=== PATIENT | male | born 1930 | race Caucasian/White ===

== ENCOUNTER 2017-06-06 08:38 | Day surgery (SDC) | payer MEDICARE, BC ==
--- NOTE | 2017-06-06 08:06 | HP ---
DATE OF SURGERY: 06/06/2017 HISTORY OF PRESENT ILLNESS: The patient is an 87 year-old who had some bright red blood start about a week or so ago with some clots and also with aches at times. No rectal pain. Bowels are regular. Unclear etiology. He is in need of follow up colonoscopy. He did have some recent antibiotic for root canal recently. Concern about whether he had infection. PAST MEDICAL HISTORY: Hypertension, heart disease, hypercholesterolemia. PAST SURGICAL HISTORY: Back surgery, knee surgery and endoscopy. He had hernia repair in the past. MEDICATIONS: Aspirin, gabapentin, hydrocodone, metoprolol, omeprazole, hyoscyamine sulfate. ALLERGIES: LATEX, TAPE, LIBRAX, PRAVACHOL, REGLAN, ZOCOR. FAMILY HISTORY: Diabetes. SOCIAL HISTORY: No smoking. Occasional alcohol use. REVIEW OF SYSTEMS: Twelve systems reviewed per admission assessment. No chest pain or palpitations other systems negative or noncontributory as above and per preadmission questionnaire. PHYSICAL EXAMINATION: GENERAL: No acute distress. HEENT: Sclerae nonicteric. NECK: No JVD. CHEST: Equal excursion, nonlabored breathing. CVS: Regular rate and rhythm. ABDOMEN: Soft. No peritoneal signs. EXTREMITIES: No significant edema. NEURO: Alert, moving extremities symmetrically. No gross motor deficits noted. RECTAL: Deferred timed to endoscopy exam. IMPRESSION: Rectal bleeding unclear etiology anything from colitis, diverticulosis versus hemorrhoid issues. Either way I feel the patient would benefit from colonoscopy. Risks and benefits explained in detail not limited to bleeding or infection, risk of bowel injury or perforation possibly requiring open procedure, risk of missed or nondiagnosis or incomplete exam or inability to determine etiology of his bleeding. He understands if no other etiology other than hemorrhoids may consider banding, general risk of anesthesia or sedation, risk of bowel injury or perforation possibly requiring open procedure, consider if only hemorrhoid issue could consider banding, general risk of bleeding, infection, risky of deep infection possibly progression of hemorrhoid disease, possibly requiring other procedures but not limited to. He understands and agrees to the planned procedure and will proceed with colonoscopy and also internal hemorrhoid banding as an outpatient.
[2017-06-06] MEDS ORDERED: DIPRIVAN 200 MG/20 ML IV ONE (08:39)
[2017-06-06] MEDS ORDERED: Lactated Ringers 1,000 ML IV ONE (08:52)
[2017-06-06] MEDS ORDERED: Lactated Ringers 1,000 ML IV SCH (09:00)
[2017-06-06 12:19] VITALS: BP 134/82; PULSE 81; O2SAT 100
--- NOTE | 2017-06-07 08:07 | OP ---
SURGERY DATE/TIME: 06/06/2017 1031 PREOPERATIVE DIAGNOSIS: Rectal bleeding. POSTOPERATIVE DIAGNOSES: 1) Grade II dysplasia. 2) Internal and external hemorrhoids question source of bleeding. No active current bleeding. 2) Diverticulosis. 3) Fair bowel prep. PROCEDURES: 1) Colonoscopy to cecum with random cold biopsy of colon to evaluate for microscopic colitis. 2) Hot biopsy small raised lesion versus hyperplastic lesion rectosigmoid. 3) Internal hemorrhoid banding x3 columns. SURGEON: Dr. Dyllan Irby. ANESTHESIA: MAC. ESTIMATED BLOOD LOSS: Minimal. INDICATIONS: As noted above. Risks and benefits explained in detail but not limited to and consent obtained. DESCRIPTION OF PROCEDURE AND FINDINGS: The patient is taken to the operating room. MAC anesthesia introduced. After official time out and no disagreement with planned procedure, digital rectal exam did not reveal any rectal masses. He did have some internal and external hemorrhoids. Video colonoscope inserted and passed up through the sigmoid, descending and transverse colon. With external pressure the scope was able to be passed around the ascending colon to the cecum. Appendiceal orifice and valve were well visualized. Prep overall was fair. There were a few areas of liquidy stool suction irrigated as well as possible limiting the exam slightly. Overall fair bowel prep. On withdrawal of the scope there had been no signs of any fresh or old blood in the colon. He had been on some antibiotics. It was elected to go ahead and do some random cold biopsies in the colon to evaluate for microscopic colitis. Good hemostasis noted. Scope slowly and carefully pulled back. He had some mild diverticulosis in the left colon. There were no signs of any large polyps, masses or obstructing lesions. There were some very small raised lesion versus early polyp or hyperplastic lesion in the rectosigmoid colon at about 20 cm removed with biopsy forceps. Otherwise on retroflex he had some grade II/III internal and external hemorrhoids seen to be on the irritated side. There was question whether this was the reason for rectal bleeding. There were no signs of any obvious masses. No signs of any definitive AVM or other etiology of obvious rectal bleeding at this time. No signs of any fresh or old blood. The scope was withdrawn. The patient tolerated this part of the procedure well. Again biopsy site removal of a small raised lesion in rectosigmoid with good hemostasis. Under MAC anesthesia half-stewart retractor carefully inserted. It was felt definitely worthwhile to try a little hemorrhoid banding. Therefore starting at left lateral grasping the top edge of the internal hemorrhoid, suction napkin machine operator easily applied with good tuft of tissue. This was again repeated in the right posterior and again on the right anterior hemorrhoidal column. A good tuft of tissue in each column grasped. The patient tolerated the procedure well. There were no immediate complications. Findings discussed with the family in the waiting area. Continue high fiber diet and Metamucil to titrate soft bulky bowel movements.
== END 2017-06-06 12:32 | disposition home or self-care (01) ==
LOC: SDC 08:38
PROVIDERS: ATTEND Surgery
PROC: 0DBG8ZX Excision of Left Large Intestine, Via Natural or Artificial Opening Endoscopic, Diagnostic (ICD-10-PCS; principal; 2017-06-06)
PROC: 0DBF8ZX Excision of Right Large Intestine, Via Natural or Artificial Opening Endoscopic, Diagnostic (ICD-10-PCS; 2017-06-06)
PROC: 06LY4CC Occlusion of Hemorrhoidal Plexus with Extraluminal Device, Percutaneous Endoscopic Approach (ICD-10-PCS; 2017-06-06)
PROC: 0DBP8ZX Excision of Rectum, Via Natural or Artificial Opening Endoscopic, Diagnostic (ICD-10-PCS; 2017-06-06)
DX: K62.5 Hemorrhage of anus and rectum (principal); Q43.9 Congenital malformation of intestine, unspecified; K64.4 Residual hemorrhoidal skin tags; K64.8 Other hemorrhoids; K57.90 Diverticulosis of intestine, part unspecified, without perforation or abscess without bleeding; I10 Essential (primary) hypertension; I51.9 Heart disease, unspecified; E78.00 Pure hypercholesterolemia, unspecified
CPT/HCPCS: 45398; 88305; 99100; J2704

== ENCOUNTER 2017-06-19 11:33 | Observation (INO) | payer MEDICARE, BC ==
[2017-06-19] MEDS ORDERED: Sodium Chloride 0.9% 1000 ML 1,000 ML IV SCH ×2 (12:15→14:15)
[2017-06-19 12:31] LABS: INR 1.08 (0.8-3.0)
[2017-06-19 12:32] LABS: BASOPHIL % 0.5 % (0.0-0.4); Basophil (Absolute #) 0.03 (0-0.4); Eosinophil % 2.4 % (0.00-5.0); Eosinophil (Absolute #) 0.15 (0-0.5); Granulocyte Absolute (ANC) 3.96 (1.4-6.9); Granulocytes % 62.6 % (36.0-66.0); Hematocrit 35.3 % (42-50); Hemoglobin 11.3 gm/dl (12.5-18.0); Lymphocyte (Absolute #) 1.53 (1.0-4.6); Lymphocytes % 24.2 % (24.0-44.0); Mean Cell Volume 90.1 fl (78-100); Mean Corpuscular Hemoglobin 28.8 pg (26-32); Mean Platelet Volume 10.6 fl (6-9.5); Monocyte (Absolute #) 0.65 (0.0-1.3); Monocytes % 10.3 % (0.0-12.0); Platelet Count 186 K/mm3 (150-450); Red Blood Count 3.92 M/mm3 (4.1-5.6); Red Cell Distribution Width 14.4 % (11.5-14.0); White Blood Count 6.3 K/mm3 (4.0-10.5)
[2017-06-19 12:37] LABS: ALBUMIN 4.1 g/dL (3.5-5.0); ALKALINE PHOSPHATASE 73 U/L (38-126); ANION GAP 15.7 MEQ/L (5-15); BLOOD UREA NITROGEN 22 mg/dL (9-20); CHLORIDE 104 mmol/L (98-107); Carbon Dioxide 26 mmol/L (22-30); Creatinine 1 1.18 mg/dL (0.66-1.25); Glucose 108 mg/dL (74-106); Potassium 4.2 mmol/L (3.5-5.1); SGOT/AST 32 U/L (17-59); SGPT/ALT 18 U/L (0-50); SODIUM 141 mmol/L (137-145)
[2017-06-19 13:15] LABS: Appearance CLEAR (CLEAR); Bilirubin NEGATIVE (NEGATIVE); Blood NEGATIVE Ery/ul (0-5); Glucose NEGATIVE (NEGATIVE); Ketones NEGATIVE (NEGATIVE); Leukocyte Esterase NEGATIVE (NEGATIVE); Nitrite NEGATIVE (NEGATIVE); Protein,Urine Dip TRACE (Negative); Urobilinogen NORMAL mg/dL (0-1)
[2017-06-19 13:24] LABS: Bacteria FEW /HPF (NEGATIVE); Mucus MODERATE /HPF (NEGATIVE); WBC 0-2 /HPF (0-5)
--- NOTE | 2017-06-19 14:10 | ERPHSYRPT ---
- History of Present Illness Time Seen by Provider: 06/19/17 11:50 Source: patient, family Patient Subjective Stated Complaint: Pt states "I was sitting in denominational and I just got a little lightheaded, no pain, no dizziness, just felt odd in my head. " Triage Nursing Assessment: Pt alert and oriented X 3, skin pwd. Pt ambulates with an upright steady gait, able to speak in full clear sentences. Physician History: PATIENT WITH A HISTORY OF HYPERTENSION COMPLAINS OF ACUTE ONSET OF BLURRED VISION, SPOUSE STATES PATIENT APPEARED PALE, UNSPONSIVE TO VERBAL STIMULI FOR 15 MINUTES. PATIENT DENIES HEADACHE, SLURRED SPEECH, FOCAL NUMBNESS, TINGLING OR WEAKNESS IN EXTREMITIES OR UNSTEADY GAIT. Timing/Duration: today Severity: moderate Character of Deficits: other (TRANSIENT BLURRED VISION) Deficits: no difficulties Baseline/Normal Cognition: alert oriented x 3 Current Cognition: alert oriented x 3 Baseline Gait: walks w/o assistance Associated Symptoms: vision changes, other (GENERALIZED WEAKNESS) Allergies/Adverse Reactions: latex Allergy (Severe, Verified 06/06/17 08:57) clindamycin Allergy (Verified 06/06/17 08:57) Wheezing metoclopramide HCl [From Reglan] Adverse Reaction (Verified 06/06/17 08:57) RENAL Home Medications: Amlodipine Besylate 5 mg [Norvasc 5 mg] 5 mg PO DAILY 05/17/13 [History] Docusate Sodium 100 mg [Colace 100 MG] 100 mg PO UD 05/17/13 [History] Gabapentin 400 mg PO BID 05/17/13 [History] Hydrocodone/APAP 7.5/750 [Vicodin Es] 1 udtab PO BID 05/17/13 [History] Lisinopril 5 mg [Zestril 5 MG] 2.5 mg PO BID 05/17/13 [History] Metoprolol Succinate 25 mg Xl* [Toprol-Xl 25MG Tablets] 12.5 mg PO BID [History] Omeprazole 20 MG [Prilosec 20 mg] 20 mg PO DAILY 05/17/13 [History] Orphenadrine Citrate 100 mg [Norflex 100 MG Tablet] 100 mg PO [id number] PRN 05/17/13 [History] Clobetasol Propionate/Emoll [Clobetasol Emollient 0.05% Crm] 15 gm TP BID [History] Cyclobenzaprine HCl 10 mg [Cyclobenzaprine 10 MG] 10 mg PO Q12H PRN PRN [History] Hyoscyamine Sulfate 0.375 mg [Levbid 0.375 mg Sr] 0.375 mg PO TIDPRN [History] Tamsulosin HCl 0.4 mg [Flomax 0.4 MG] 0.4 mg PO DAILY 03/03/16 [History] Evolocumab [Repatha Syringe] 140 mg IM UD 06/03/17 [History] Hx Tetanus, Diphtheria Vaccination/Date Given: Yes Hx Influenza Vaccination/Date Given: Yes Hx Pneumococcal Vaccination/Date Given: Yes Immunizations Up to Date: Yes - Review of Systems Constitutional: No Fever, No Chills Eyes: No Symptoms, Vision Changes Ears, Nose, & Throat: No Symptoms Respiratory: No Symptoms, No Cough, No Dyspnea Cardiac: No Symptoms, No Chest Pain, No Edema, No Syncope Abdominal/Gastrointestinal: No Symptoms, No Abdominal Pain, No Nausea, No Vomiting, No Diarrhea Genitourinary Symptoms: No Dysuria Musculoskeletal: No Back Pain, No Neck Pain Skin: No Rash Neurological: Other (NEAR SYNCOPE), No Dizziness, No Focal Weakness, No Sensory Changes Psychological: No Symptoms Endocrine: No Symptoms All Other Systems: Reviewed and Negative - Past Medical History Pertinent Past Medical History: Yes Neurological History: No Pertinent History ENT History: Cataracts Cardiac History: Coronary Artery Disease, High Cholesterol, Hypertension Respiratory History: No Pertinent History Endocrine Medical History: No Pertinent History Musculoskeletal History: Osteoarthritis GI Medical History: Hernia, Ulcer History: No Pertinent History Psycho-Social History: No Pertinent History Male Reproductive Disorders: Prostate Problems Other Medical History: BACK CHRONIC PAIN - Past Surgical History Past Surgical History: Yes Neuro Surgical History: No Pertinent History Cardiac: No Pertinent History Respiratory: No Pertinent History Gastrointestinal: Hernia Repair Genitourinary: No Pertinent History Musculoskeletal: Orthopedic Surgery Male Surgical History: Prostate Surgery, Other Other Surgical History: TURP, bone spurs removed from cervical and lumbar areas, rt knee x2,surgery to repair fx nose - Social History Smoking Status: Never smoker Exposure to second hand smoke: No Drug Use: none Patient Lives Alone: No Significant Family History: heart disease, hypertension - Nursing Vital Signs Nursing Vital Signs: Initial Vital Signs Temperature 97.8 F 06/19/17 11:40 Pulse Rate 62 06/19/17 11:40 Respiratory Rate 16 06/19/17 11:40 Blood Pressure 140/59 06/19/17 11:40 O2 Sat by Pulse Oximetry 100 06/19/17 11:40 Pain Scale Pain Intensity 0 - [place] Coma Scale Best Eye Response ([place]): (4) open spontaneously Best Verbal Response ([place]): (5) oriented Best Motor Response ([place]): (6) obeys commands Moris Total: 15 - Physical Exam General Appearance: no apparent distress, alert Eye Exam: bilateral eye: PERRL, EOMI Ears, Nose, Throat Exam: normal ENT inspection, moist mucous membranes Neck Exam: normal inspection, non-tender, supple Respiratory: normal breath sounds, lungs clear, airway intact, No respiratory distress Cardiovascular: regular rate/rhythm, No edema Gastrointestinal: soft, No tenderness, No distention Back Exam: normal inspection Extremity Exam: normal inspection, No pedal edema Peripheral Pulses: carotid (R): 2+, carotid (L): 2+, femoral (R): 2+, femoral (L ): 2+, dorsalis-pedis (R): 2+, dorsalis-pedis (L): 2+ Mental Status: alert, oriented x 3 public health social worker Exam: normal hearing, normal speech, tongue midline Coordination/Gait: normal finger to nose, normal gait Motor/Sensory: no motor deficit, no sensory deficit, no pronator drift DTR: bicep (R): 2+, bicep (L): 2+, tricep (R): 2+, tricep (L): 2+, knee (R): 2+ , knee (L): 2+, ankle (R): 2+ Skin Exam: normal color, warm, dry, No rash SpO2 Interpretation: normal SpO2: 99 Oxygen Delivery: Room Air - Course EKG Interpreted by Me: RATE, Sinus Rhythm, NORMAL AXIS, Non-specific ST Changes (INFERIOR LATERAL ST DEPRESSION NO CHANGE COMPARED TO EKG 02/13/2016) - Radiology Exams Chest X-ray Interpretation: Interpreted by me (ELEVATION RIGHT HEMIDIAPHRAM, BILATERAL HILAR CALCIFIED NODES) Ordered Tests: Active Orders 24 hr Category Date Time Status Up Ad Karla ROUTINE Activity 06/19/17 14:17 Ordered Call Admit Doctor for Orders ON ADMISSION Care 06/19/17 14:16 Ordered Information Systems Security Analyst STAT Care 06/19/17 12:09 Active Clean Catch Urine Specimen STAT Care 06/19/17 12:08 Active Code Status Order ROUTINE Care 06/19/17 14:15 Ordered EKG-ER Only STAT Care 06/19/17 12:08 Active IV Care Q6H Care 06/19/17 14:15 Ordered IV Insertion STAT Care 06/19/17 12:08 Active Neuro Checks Q4H Care 06/19/17 14:15 Ordered Oxygen-ED Only NASAL CANNULA 2 lpm Care 06/19/17 12:[address] in Observation ROUTINE Care 06/19/17 14:15 Ordered Telemetry ROUTINE Care 06/19/17 14:15 Ordered Vital Signs Q4H Care 06/19/17 14:15 Ordered Regular Diet Diet 06/19/17 Dinner Ordered CHEST 1 VIEW (PORTABLE) Stat Exams 06/19/17 12:08 Taken HEAD WITHOUT CONTRAST [CT] Stat Exams 06/19/17 12:08 Taken CBC W DIFF Stat Lab 06/19/17 12:08 Completed CMP Stat Lab 06/19/17 12:08 Completed PT INR [PROTIME WITH INR] Stat Lab 06/19/17 12:10 Completed TROPONIN Q3H Lab 06/19/17 12:15 Completed TROPONIN Q3H Lab 06/19/17 15:15 Ordered TROPONIN Q3H Lab 06/19/17 18:15 Ordered TROPONIN Q3H Lab 06/19/17 21:15 Ordered TROPONIN Q3H Lab 06/20/17 00:15 Ordered UA W/ MICROSCOPIC Stat Lab 06/19/17 13:10 Completed Oxygen NASAL CANNULA 2 lpm RT 06/19/17 14:15 Ordered Transfer Order Routine Transfer 06/19/17 Ordered Medication Summary Generic Name Dose Route Start Last Admin Trade Name Freq PRN Reason Stop Dose Admin Acetaminophen 650 mg 06/19/17 14:15 Tylenol 325 Mg PO 07/19/17 14:14 Q4H PRN PRN PAIN AND/OR FEVER Aspirin 81 mg 06/20/17 10:00 Ecotrin 81 Mg PO 07/20/17 09:59 DAILY PHILIPPE Sodium Chloride 1,000 mls @ 50 mls/hr 06/19/17 12:15 06/19/17 13:17 Sodium Chloride 0.9% 1000 Ml IV 07/19/17 12:14 50 mls/hr .Q20H PHILIPPE Administration Sodium Chloride 1,000 mls @ 30 mls/hr 06/19/17 14:15 Sodium Chloride 0.9% 1000 Ml IV 07/19/17 14:14 .Q24H PHILIPPE Lisinopril 2.5 mg 06/19/17 22:00 Zestril 5 Mg PO 07/19/17 21:59 BID PHILIPPE Metoprolol Succinate 12.5 mg 06/19/17 22:00 Toprol-Xl 25mg Tablets PO 07/19/17 21:59 BID PHILIPPE Ondansetron HCl 4 mg 06/19/17 14:15 Zofran 4 Mg/2 Ml Vial IV 07/19/17 14:14 Q6H PRN PRN NAUSEA/VOMITING Lab/Rad Data: Laboratory Result Diagrams 06/19/17 12:08 06/19/17 12:08 Laboratory Results 06/19/17 06/19/17 06/19/17 Range/Units 13:10 12:15 12:10 WBC (4.0-10.5) K/mm3 RBC (4.1-5.6) M/mm3 Hgb (12.5-18.0) gm/dl Hct (42-50) % MCV (78-100) fl MCH (26-32) pg MCHC (32-36) g/dl RDW (11.5-14.0) % Plt Count (150-450) K/mm3 MPV (6-9.5) fl Gran % (36.0-66.0) % Eos # (Auto) (0-0.5) Absolute Lymphs (auto) (1.0-4.6) Absolute Monos (auto) (0.0-1.3) Lymphocytes % (24.0-44.0) % Monocytes % (0.0-12.0) % Eosinophils % (0.00-5.0) % Basophils % (0.0-0.4) % Absolute Granulocytes (1.4-6.9) Basophils # (0-0.4) INR 1.08 (0.8-3.0) Sodium (137-145) mmol/L Potassium (3.5-5.1) mmol/L Chloride (98-107) mmol/L Carbon Dioxide (22-30) mmol/L Anion Gap (5-15) MEQ/L BUN (9-20) mg/dL Creatinine (0.66-1.25) mg/dL Estimated GFR ML/MIN Glucose (74-106) mg/dL Calcium (8.4-10.2) mg/dL Total Bilirubin (0.2-1.3) mg/dL AST (17-59) U/L ALT (0-50) U/L Alkaline Phosphatase (38-126) U/L Troponin I 0.012 (0.000-0.034) ng/mL Serum Total Protein (6.3-8.2) g/dL Albumin (3.5-5.0) g/dL Ur Collection Type VOID Urine Color YELLOW (YELLOW) Urine Appearance CLEAR (CLEAR) Urine pH 5.0 (5-6) Ur Specific [place] 1.020 (1.005-1.025) Urine Protein TRACE (Negative) Urine Ketones NEGATIVE (NEGATIVE) Urine Blood NEGATIVE (0-5) Mian/ul Urine Nitrite NEGATIVE (NEGATIVE) Urine Bilirubin NEGATIVE (NEGATIVE) Urine Urobilinogen NORMAL (0-1) mg/dL Ur Leukocyte Esterase NEGATIVE (NEGATIVE) Urine Microscopic WBC 0-2 (0-5) /HPF Urine Bacteria FEW (NEGATIVE) /HPF Urine Mucus MODERATE (NEGATIVE) /HPF Urine Culture Reflexed NO (NO) Urine Glucose NEGATIVE (NEGATIVE) mg/dL Specimen Received 06/19/17 1310 06/19/17 06/19/17 Range/Units 12:08 12:08 WBC 6.3 (4.0-10.5) K/mm3 RBC 3.92 L (4.1-5.6) M/mm3 Hgb 11.3 L (12.5-18.0) gm/dl Hct 35.3 L (42-50) % MCV 90.1 (78-100) fl MCH 28.8 (26-32) pg MCHC 32.0 (32-36) g/dl RDW 14.4 H (11.5-14.0) % Plt Count 186 (150-450) K/mm3 MPV 10.6 H (6-9.5) fl Gran % 62.6 (36.0-66.0) % Eos # (Auto) 0.15 (0-0.5) Absolute Lymphs (auto) 1.53 (1.0-4.6) Absolute Monos (auto) 0.65 (0.0-1.3) Lymphocytes % 24.2 (24.0-44.0) % Monocytes % 10.3 (0.0-12.0) % Eosinophils % 2.4 (0.00-5.0) % Basophils % 0.5 (0.0-0.4) % Absolute Granulocytes 3.96 (1.4-6.9) Basophils # 0.03 (0-0.4) INR (0.8-3.0) Sodium 141 (137-145) mmol/L Potassium 4.2 (3.5-5.1) mmol/L Chloride 104 (98-107) mmol/L Carbon Dioxide 26 (22-30) mmol/L Anion Gap 15.7 H (5-15) MEQ/L BUN 22 H (9-20) mg/dL Creatinine 1.18 (0.66-1.25) mg/dL Estimated GFR > 60 ML/MIN Glucose 108 H (74-106) mg/dL Calcium 9.0 (8.4-10.2) mg/dL Total Bilirubin 0.30 (0.2-1.3) mg/dL AST 32 (17-59) U/L ALT 18 (0-50) U/L Alkaline Phosphatase 73 (38-126) U/L Troponin I (0.000-0.034) ng/mL Serum Total Protein 7.0 (6.3-8.2) g/dL Albumin 4.1 (3.5-5.0) g/dL Ur Collection Type Urine Color (YELLOW) Urine Appearance (CLEAR) Urine pH (5-6) Ur Specific [place] (1.005-1.025) Urine Protein (Negative) Urine Ketones (NEGATIVE) Urine Blood (0-5) Mian/ul Urine Nitrite (NEGATIVE) Urine Bilirubin (NEGATIVE) Urine Urobilinogen (0-1) mg/dL Ur Leukocyte Esterase (NEGATIVE) Urine Microscopic WBC (0-5) /HPF Urine Bacteria (NEGATIVE) /HPF Urine Mucus (NEGATIVE) /HPF Urine Culture Reflexed (NO) Urine Glucose (NEGATIVE) mg/dL Specimen Received - Progress Progress: improved Discussed with : Tasia (DISCUSSED WITH DR GREGORY AT 1356 FOR OBSERVATION) - Departure Time of Disposition: 14:20 Departure Disposition: Observation Clinical Impression: NEAR SYNCOPE Condition: Stable Critical Care Time: No Referrals: BLANCA DAVID [Primary Care Provider] -
[2017-06-19] MEDS ORDERED: TYLENOL 325 MG PO PRN (14:15)
[2017-06-19] MEDS ORDERED: Zofran 4 MG/2 ML VIAL IV PRN (14:15)
[2017-06-19] MEDS ORDERED: Neurontin 400 MG PO PRN (15:58)
[2017-06-19] MEDS ORDERED: NORCO 5/325 MG PO PRN (16:00)
--- NOTE | 2017-06-19 19:08 | XRAY ---
Indication: Mental status change. Vision change. Multiple contiguous axial images obtained through the head without contrast. Comparison: February 26, 2007. Age-appropriate global atrophy and minimal periventricular degenerative micro-ischemia bilaterally. No acute intracranial hemorrhage, abnormal extra-axial fluid collection, or mass effect. Fourth ventricle is midline without hydrocephalus. Bony calvarium intact. Visualized paranasal sinuses and mastoid air cells are clear. Impression: Nonacute senile brain. Comment: Preliminary interpretation was made by [facility]. No discrepancy. CTDI 66.12
--- NOTE | 2017-06-19 19:10 | XRAY ---
Indication: Dyspnea. Comparison: April 20, 2012. Portable chest again demonstrates normal heart and lungs with scattered calcified granulomas. Bony thorax intact again with mild degenerative changes. No new/acute findings.
[2017-06-19] MEDS ORDERED: Zestril 5 MG ONE (19:48)
[2017-06-19] MEDS ORDERED: Toprol-Xl 25MG Tablets ONE (19:48)
[2017-06-19] MEDS: Toprol-Xl 25MG Tablets PO SCH (19:53)
[2017-06-19] MEDS: Zestril 5 MG PO SCH (19:54)
[2017-06-20 00:29] VITALS: O2SAT 96
--- NOTE | 2017-06-20 08:57 | PCM.HP ---
History of Present Illness - Chief Complaint Chief Complaint: near syncope Date: 06/20/17 History of Present Illness: is a 87 year old male. who was at [employer] and ate breakfast there and included some cakes. He was in service and told his daughter things were getting blurry, he closed his eyes and started to slump onto her but was awake. he was very weak and required assistance out of the seat. He otherwise was doing well prior to this no change in medications. He did not have any diaphoresis, chest pain, vomiting, diarrhea , or loss of consciousness he feels much better and like himself this am. - Review of Systems Constitutional: No Fever, No Chills Eyes: No Symptoms Ears, Nose, & Throat: No Symptoms Respiratory: No Cough, No Short Of Breath Cardiac: No Chest Pain, No Edema, No Syncope Abdominal/Gastrointestinal: No Abdominal Pain, No Nausea, No Vomiting, No Diarrhea Genitourinary Symptoms: No Dysuria Musculoskeletal: No Back Pain, No Neck Pain Skin: No Rash Neurological: No Dizziness, No Focal Weakness, No Sensory Changes Psychological: No Symptoms Endocrine: No Symptoms Hematologic/Lymphatic: No Symptoms Immunological/Allergic: No Symptoms Medications & Allergies Home Medications: Home Medication List Amlodipine Besylate 5 mg [Norvasc 5 mg] 5 mg PO DAILY 05/17/13 [History Confirmed 06/19/17] Docusate Sodium 100 mg [Colace 100 MG] 100 mg PO DAILY PRN PRN 05/17/13 [ History Confirmed 06/19/17] Gabapentin 400 mg PO QID 05/17/13 [History Confirmed 06/19/17] Lisinopril 5 mg [Zestril 5 MG] 2.5 mg PO BID 05/17/13 [History Confirmed 06/19/17] Metoprolol Succinate 25 mg Xl* [Toprol-Xl 25MG Tablets] 12.5 mg PO BID [History Confirmed 06/19/17] Omeprazole 20 MG [Prilosec 20 mg] 20 mg PO DAILY 05/17/13 [History Confirmed ] Clobetasol Propionate/Emoll [Clobetasol Emollient 0.05% Crm] 15 gm TP BIDPRN PRN 03/03/16 [History Confirmed 06/19/17] Hyoscyamine Sulfate 0.375 mg [Levbid 0.375 mg Sr] 0.375 mg PO TIDPRN [History Confirmed 06/19/17] Tamsulosin HCl 0.4 mg [Flomax 0.4 MG] 0.4 mg PO DAILY 03/03/16 [History Confirmed 06/19/17] Evolocumab [Repatha Syringe] 140 mg IM UD 06/03/17 [History Confirmed 06/19/17] Aspirin 40.5 mg PO DAILY #0 06/06/17 [Rx Confirmed 06/19/17] Guaifenesin 600 mg ER [Mucinex 600MG ER Tabs] 600 mg PO DAILY PRN PRN [History Confirmed 06/19/17] Hydrocodone/Acetaminophen [Hydrocodone-Acetamin 5-325 mg] 1 tab PO BID 06/19/17 [History Confirmed 06/19/17] Hydroxyzine HCl 10 mg PO Q4HPRN PRN 06/19/17 [History Confirmed 06/19/17] Silodosin [Rapaflo] 8 mg PO DAILY 06/19/17 [History Confirmed 06/19/17] Allergies/Adverse Reactions: Allergies Allergy/AdvReac Type Severity Reaction Status Date / Time latex Allergy Severe Verified 06/06/17 08:57 clindamycin Allergy Wheezing Verified 06/06/17 08:57 metoclopramide HCl AdvReac Verified 06/06/17 08:57 [From [facility]] - Past Medical History Past Medical History: Yes Neurological History: No Pertinent History ENT History: Cataracts Cardiac History: Coronary Artery Disease, High Cholesterol, Hypertension Respiratory History: No Pertinent History Endocrine Medical History: No Pertinent History Musculoskelatal History: Osteoarthritis GI Medical History: Hernia, Ulcer History: No Pertinent History Pyscho-Social History: No Pertinent History Male Reproductive Disorders: Prostate Problems Comment: BACK CHRONIC PAIN - Past Surgical History Past Surgical History: Yes Neuro Surgical History: No Pertinent History Cardiac History: No Pertinent History Respiratory Surgery: No Pertinent History GI Surgical History: Hernia Repair Genitourinary Surgical Hx: No Pertinent History Musculskeletal Surgical Hx: Orthopedic Surgery Male Surgical History: Prostate Surgery, Other Other Surgical History: TURP, bone spurs removed from cervical and lumbar areas, rt knee x2,surgery to repair fx nose - Social History Smoking Status: Never smoker Exposure to second hand smoke: No Alcohol: None Drug Use: none Significant Family History: heart disease, hypertension - Physical Exam Vital Signs: Vital Signs - 24 hr Temp Pulse Resp BP Pulse Ox 06/20/17 08:00 97.6 F 75 18 144/67 96 06/20/17 04:00 97.8 F 70 19 183/79 96 06/20/17 00:00 98.1 F 71 16 147/65 96 06/19/17 20:00 97.9 F 80 18 174/71 97 06/19/17 16:05 98 06/19/17 15:03 97.7 F 67 20 135/65 97 06/19/17 14:27 70 20 137/70 98 06/19/17 14:23 99 06/19/17 13:50 98.2 F 66 16 139/60 99 06/19/17 13:20 98.2 F 62 16 155/89 99 06/19/17 11:40 97.8 F 62 16 140/59 100 General Appearance: no apparent distress, alert Neurologic Exam: alert, oriented x 3, cooperative, normal mood/affect, nml cerebellar function, nml station & gait, sensation nml, No motor deficits Eye Exam: PERRL/EOMI, eyes nml inspection Ears, Nose, Throat Exam: normal ENT inspection, TMs normal, pharynx normal, moist mucous membranes Neck Exam: normal inspection, non-tender, supple, full range of motion Respiratory Exam: normal breath sounds, lungs clear, No respiratory distress Cardiovascular Exam: regular rate/rhythm, normal heart sounds, normal peripheral pulses Gastrointestinal/Abdomen Exam: soft, normal bowel sounds, No tenderness, No mass Back Exam: normal inspection, normal range of motion, No CVA tenderness, No vertebral tenderness Extremity Exam: normal inspection, normal range of motion, pelvis stable Skin Exam: normal color, warm, dry, No rash Lymphatic Exam: No adenopathy Results - Labs Lab/Micro Results: Lab Results-Last 24 Hours 06/19/17 06/19/17 06/19/17 Range/Units 15:13 18:23 21:18 Troponin I < 0.012 < 0.012 0.012 (0.000-0.034) ng/mL 06/20/17 Range/Units 00:41 Troponin I 0.015 (0.000-0.034) ng/mL - Radiology Impressions Radiology Exams & Impressions: Radiology Procedures Category Date Time Status ECHO W/2D AND DOPPLER [US] Routine Exams 06/20/17 Ordered - Other Procedures and Tests Respiratory Therapy 06/19/17 14:15 Oxygen NASAL CANNULA 2 lpm Assessment/Plan (1) Pre-syncope Status: Acute Assessment & Plan: suspect it was due to low blood pressure or possibly low blood sugar that has resolved no events on telemetry overnight symptoms are resolved EChocardiogram will be checked and he will f/u with Dr. Kaye for results sooner if needed stay well hydrated and avoid high sugar foods (2) Essential hypertension Status: Acute Code(s): I10 - ESSENTIAL (PRIMARY) HYPERTENSION (3) Coronary arteriosclerosis Status: Acute
--- NOTE | 2017-06-20 08:59 | PCM.DCORD ---
- Discharge Discharge Date: 06/20/17 Disposition: Home, Self-Care Condition: Stable Prescriptions: Continue Docusate Sodium 100 mg [Colace 100 MG] 100 mg PO DAILY PRN PRN PRN Reason: Constipation Lisinopril 5 mg [Zestril 5 MG] 2.5 mg PO BID Gabapentin 400 mg PO QID Omeprazole 20 MG [Prilosec 20 mg] 20 mg PO DAILY Amlodipine Besylate 5 mg [Norvasc 5 mg] 5 mg PO DAILY Metoprolol Succinate 25 mg Xl* [Toprol-Xl 25MG Tablets] 12.5 mg PO BID Tamsulosin HCl 0.4 mg [Flomax 0.4 MG] 0.4 mg PO DAILY Hyoscyamine Sulfate 0.375 mg [Levbid 0.375 mg Sr] 0.375 mg PO TIDPRN Clobetasol Propionate/Emoll [Clobetasol Emollient 0.05% Crm] 15 gm TP BIDPRN PRN PRN Reason: Itching Evolocumab [Repatha Syringe] 140 mg IM UD Aspirin 40.5 mg PO DAILY #0 Hydroxyzine HCl 10 mg PO Q4HPRN PRN PRN Reason: Itching Silodosin [Rapaflo] 8 mg PO DAILY Guaifenesin 600 mg ER [Mucinex 600MG ER Tabs] 600 mg PO DAILY PRN PRN PRN Reason: Cough Hydrocodone/Acetaminophen [Hydrocodone-Acetamin 5-325 mg] 1 tab PO BID Discontinued Orphenadrine Citrate 100 mg [Norflex 100 MG Tablet] 100 mg PO [id number] PRN PRN Reason: ' Cyclobenzaprine HCl 10 mg [Cyclobenzaprine 10 MG] 10 mg PO Q12H PRN PRN PRN Reason: Muscle Spasms Additional Instructions: ok for d/c if doing well after echo Follow up with: BLANCA DAVID [Primary Care Provider] - 1 Week
[2017-06-20] MEDS: Toprol-Xl 25MG Tablets PO SCH (09:58)
[2017-06-20] MEDS: Zestril 5 MG PO SCH (09:58)
[2017-06-20] MEDS ORDERED: ECOTRIN 81 MG PO SCH (10:00)
[2017-06-20 14:02] VITALS: BP 178/78; PULSE 78
--- NOTE | 2017-06-21 15:43 | ECHO ---
Transthoracic echocardiographic examination and color Doppler was done on 06/20/2017. INDICATION: Hypertension, hyperlipidemia. IMPRESSION: 1) MILD LEFT VENTRICULAR HYPOKINESIA. EJECTION FRACTION OF AROUND 50%. 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 3) MILD MITRAL REGURGITATION. 4) TRACE TRICUSPID REGURGITATION. RIGHT VENTRICULAR SYSTOLIC PRESSURE OF 30 MM OF MERCURY. 5) MILD PULMONIC INSUFFICIENCY. 6) TRACE AORTIC REGURGITATION. 7) LEFT VENTRICULAR HYPERTROPHY. 8) LEFT ATRIAL ENLARGEMENT. 9) LEFT VENTRICULAR DIASTOLIC DYSFUNCTION. 10) MILDLY DILATED DESCENDING THORACIC AORTA. The left ventricle is visualized and demonstrated mild left ventricular hypokinesia. Ejection fraction of about 50%. There is mild left ventricular hypertrophy. The mitral valve appears to be thickened but opens adequately. There is mild mitral regurgitation. Left atrium is enlarged. Tissue Doppler study over the lateral mitral annulus suggestive of left ventricular diastolic dysfunction. The aortic valve is calcified and has some limitation opening. The peak transaortic gradient is 34 mm of Mercury with mean gradient of 20 mm of Mercury. There is also associated trace aortic regurgitation. The right ventricle appears to be normal. There is trace tricuspid regurgitation. The right ventricular systolic pressure of 30 mm of Mercury. There is also trace pulmonic insufficiency. The descending thoracic aorta is mildly dilated.
== END 2017-06-20 13:30 | disposition home or self-care (01) ==
LOC: ED 11:33 → MED SURG 14:56
PROVIDERS: ADMIT Family Medicine; ATTEND Family Medicine
DX: R55 Syncope and collapse (principal); I25.10 Atherosclerotic heart disease of native coronary artery without angina pectoris; Z79.899 Other long term (current) drug therapy; I10 Essential (primary) hypertension; E78.00 Pure hypercholesterolemia, unspecified; M19.90 Unspecified osteoarthritis, unspecified site; M54.9 Dorsalgia, unspecified; G89.29 Other chronic pain; F45.42 Pain disorder with related psychological factors
CPT/HCPCS: 36000; 36415; 70450; 71045; 80053; 81000; 84484; 85025; 85610; 93005; 93041; 93268; 93306; 94760; 96360; 96361; 99285; G0378; A9270-GY